=== PATIENT | male | born 1990 | race Caucasian/White ===

== ENCOUNTER 2022-03-27 14:57 | Emergency (ER) | payer SELFPAY | END 2022-03-27 15:22 | disposition home or self-care (01) | LOC: VM.ED 14:57 | DX: S01.511A Laceration without foreign body of lip, initial encounter (principal); W22.8XXA Striking against or struck by other objects, initial encounter | CPT/HCPCS: 12011; 99282; 99283 ==

== ENCOUNTER 2024-02-27 03:05 | Emergency (ER) | payer BC, OTHER ==
[2024-02-27 03:30] VITALS: BP 143/89; PULSE 102
[2024-02-27] MEDS: Proparacaine 0.5% Ophth Soln 15 ML Bottle EYELF ONE (03:33)
[2024-02-27] MEDS: Fluorescein 1 MG Ophth Strip EYERT ONE (03:33)
[2024-02-27] MEDS: Polymyxin B/Trimethoprim 10 ML Bottle EYERT ONE (03:34)
== END 2024-02-27 03:42 | disposition home or self-care (01) ==
LOC: VM.ED 03:05
DX: S05.01XA Injury of conjunctiva and corneal abrasion without foreign body, right eye, initial encounter (principal); W45.8XXA Other foreign body or object entering through skin, initial encounter
CPT/HCPCS: 99283; A9270-GY; J3490